=== PATIENT | female | born 1940 | race Caucasian/White ===

== ENCOUNTER → 2018-05-11 | Day surgery (SDC) | payer MEDICARE, OTHER ==
[2018-05-09 13:02] LABS: BASOPHILS % 0.8 % (0.0-1.0); EOSINOPHILS # (AUTO) 0.2 (0.0-0.4); EOSINOPHILS % 3.7 % (0.0-6.0); HEMATOCRIT 35.6 % (34.2-44.1); LYMPHOCYTES # (AUTO) 1.7 (1.0-3.2); LYMPHOCYTES % 34.5 % (18.0-39.1); MEAN CORPUSCULAR HEMOGLOBIN 28.8 pg (28-32); MEAN CORPUSCULAR HGB CONC 33.7 g/dL (31-35); MEAN CORPUSCULAR VOLUME 85.6 fL (81-99); MONOCYTES # (AUTO) 0.5 (0.2-0.8); MONOCYTES % 9.7 % (4.4-11.3); NEUTROPHILS # (AUTO) 2.5 (2.1-6.9); NEUTROPHILS % 51.1 % (38.7-80.0); PLATELET COUNT 153 x10e3/uL (140-360); RED BLOOD COUNT 4.16 x10e6/uL (3.6-5.1); RED CELL DISTRIBUTION WIDTH 13.1 % (11.7-14.4)
--- NOTE | 2018-05-09 13:16 | Diagnostic Imaging Report ---
EXAMINATION: CHEST 2 VIEWS INDICATION: Bladder support surgery. Preop. Stress urinary incontinence COMPARISON: None FINDINGS: TUBES and LINES: None. LUNGS: Lungs are well inflated. Lungs are clear. There is no evidence of pneumonia or pulmonary edema. PLEURA: No pleural effusion or pneumothorax. HEART AND MEDIASTINUM: The cardiomediastinal silhouette is unremarkable. BONES AND SOFT TISSUES: No acute osseous lesion. Soft tissues are unremarkable. UPPER ABDOMEN: No free air under the diaphragm. IMPRESSION: No acute thoracic abnormality. Signed by: Dr. Sanket Majano M.D. on 05/09/2018 1:12 PM
[2018-05-09 13:30] LABS: ANION GAP 14.5 mmol/L (8-16); CALCIUM 9.5 mg/dL (8.4-10.2); CREATININE, SERUM 1.05 mg/dL (0.57-1.11); POTASSIUM 3.5 mmol/L (3.5-5.1)
[~2018-05-11] MED LIST: ATORVASTATIN CA20 MG PO; BACITRACIN 50,000 UNIT VIAL ONE; BUPIVACAINE 0.5%/EPI 30 ML SDV INJ ONE; CEFTRIAXONE SOD 1 GM/NS 50 ML 50 ML IV ONE; CHLORTHALIDONE25 MG PO; DESFLURANE 240 ML BTL INH ONE; DEXAMETHASONE SOD PHOS INJ 4 MG/ML VIAL ONE; DONEPEZIL HCL10 MG PO; FENTANYL CITRATE/PF 100MCG/2 ML INJ ONE; KETOROLAC TROMETHAMINE 30 MG/ML VIAL ONE; LEVOXYL75 MCG PO; MYRBETRIQ50 MG PO; ONDANSETRON HCL INJ 2MG/ML 2ML 2 MG/ML VIAL ONE; PROPOFOL IV EMULSION 10 MG/ML 20 ML VIAL ONE; SERTRALINE HCL50 MG PO
--- OUTSIDE RECORDS SUMMARY | 2018-05-11 06:52 | XMS REPORT ---
Author [facility] Address Unknown Phone Unavailable Care Team Providers Care [employer] Advisor Name Role Phone Melanie ROSALES Unavailable Unavailable Problems This patient has no known problems. Allergies, Adverse Reactions, Alerts This patient has no known allergies or adverse reactions. Medications This patient has no known medications. Results Test Description Test Time Test Comments Text Results Atomic Results Result Comments CHEST 2 VIEWS 2018-05-09 13:12:00 [facility] [address] [id number] Patient Name: HANNAH CREWS MR #: [id number] : 1940 Age/Sex: 77/F Req #: [id number] Adm Physician: Ordered by: TERRANCE ROSALES MD Report #: [id number] Location: OR Room/Bed: Procedure: [id number] DX/CHEST 2 VIEWS Exam Date: 05/09/18 Exam Time: 1240 REPORT STATUS: Signed EXAMINATION: CHEST 2 VIEWS INDICATION: Bladder support surgery. Preop. Stress urinary incontinence COMPARISON: None FINDINGS: TUBES and LINES: None. LUNGS: Lungs are well inflated. Lungs are clear. There is no evidence of pneumonia or pulmonary edema. PLEURA: No pleural effusion or pneumothorax. HEART AND MEDIASTINUM: The cardiomediastinal silhouette is unremarkable. BONES AND SOFT TISSUES: No acute osseous lesion. Soft tissues are unremarkable. UPPER ABDOMEN: No free air under the diaphragm. IMPRESSION: No acute thoracic abnormality. Signed by: Dr. Sanket Majano M.D. on 05/09/2018 1:12 PM Dictated By: SANKET MAJANO MD, MD 131 Transcribed By: HAROLDO on 05/09/181311 COPY TO: TERRANCE ROSALES MD
[2018-05-11 10:50] VITALS: BP 143/74
--- NOTE | 2018-05-11 13:25 | Operative Report ---
DATE OF PROCEDURE: May 11, 2018 PREOPERATIVE DIAGNOSIS: Mixed urinary incontinence, stress much greater than urge. POSTOPERATIVE DIAGNOSIS: Mixed urinary incontinence, stress much greater than urge. OPERATIVE PROCEDURE PERFORMED: Pubovaginal sling using [employer] Fit Advantage. ANESTHESIA: General anesthesia. ESTIMATED BLOOD LOSS: Minimal. INDICATIONS: Ms. Zulma Salvador is a 77-year-old woman with a long history of mixed urinary incontinence, which has responded some to Myrbetriq, but with a continued large stress component. She now presents for definitive surgical management of this problem. PROCEDURE IN DETAIL: Patient was brought into the operating room and placed in the supine position. After the administration of general anesthesia, she was placed in the dorsal lithotomy position and prepped and draped in the usual sterile fashion. Mora catheter was placed and the balloon inflated. After infiltration with 0.5% Marcaine with epinephrine, a 1-cm incision was made in the midanterior vaginal mucosa approximately 1 cm proximal to the urethral meatus. Dissection was carried out in and around the periurethral tissues on both sides. The [employer] Fit Advantage trocar were placed first on the right side, and subsequently on the left side and allowed to exit the retropubic space. The trocar exit sites were also infiltrated with 0.5% Marcaine. The Mora catheter was removed and cystoscopy was performed. This revealed no evidence of injury to the bladder or to the urethra. The bladder was then drained and the cystoscope and sheath were removed. The sling was pulled superiorly such that there was a 1-cm gap between the posterior urethra and the mesh. The vaginal mucosa was then pulled down over the mesh reapproximated closed with a figure-of-8 of Vicryl suture. The tape was cut flush with the anterior abdominal wound. These were closed with Dermabond. A vaginal pack was placed. The patient was returned to the supine position and anesthesia was reversed. She was transferred to a bed and taken to the postanesthesia care unit in good condition. Of note, the needle and instrument count were correct at the conclusion of the case. Job#: [id number]
== END | disposition home or self-care (01) ==
LOC: OR 06:49
PROVIDERS: ATTEND Urology
DX: N39.46 Mixed incontinence (principal); F32.9 Major depressive disorder, single episode, unspecified; F41.9 Anxiety disorder, unspecified; Z01.810 Encounter for preprocedural cardiovascular examination; Z01.812 Encounter for preprocedural laboratory examination; Z01.818 Encounter for other preprocedural examination; Z68.34 Body mass index [BMI] 34.0-34.9, adult
CPT/HCPCS: 36415; 57288; 71046; 80048; 85025; 93005; C1771; J0696; J1100; J1885; J2405; J2704